=== PATIENT | male | born 1945 | race Caucasian/White ===

== ENCOUNTER → 2024-08-06 07:49 | Outpatient (REF) | payer OTHER, SELFPAY | LOC: RCS 07:49 | PROVIDERS: ATTENDING PHYSICIAN Internal Medicine Cardiovascular Disease; FAMILY PHYSICIAN Internal Medicine | DX: I48.0 Paroxysmal atrial fibrillation (principal); I26.99 Other pulmonary embolism without acute cor pulmonale; I51.9 Heart disease, unspecified; I10 Essential (primary) hypertension | CPT/HCPCS: 93306 ==

== ENCOUNTER → 2025-03-01 09:35 | Outpatient (REF) | payer OTHER, SELFPAY | LOC: RCS 09:35 | PROVIDERS: ATTENDING PHYSICIAN Internal Medicine Cardiovascular Disease | DX: R06.09 Other forms of dyspnea (principal) | CPT/HCPCS: 93017 ==

== ENCOUNTER → 2025-03-26 11:14 | Outpatient (REF) | payer OTHER, SELFPAY | LOC: RCS 11:14 | PROVIDERS: ATTENDING PHYSICIAN Internal Medicine Cardiovascular Disease | DX: R06.09 Other forms of dyspnea (principal); R94.39 Abnormal result of other cardiovascular function study | CPT/HCPCS: 78452; 93017; A9500; J2785 ==

== ENCOUNTER 2025-07-17 10:12 | Emergency (ER) | payer OTHER, SELFPAY ==
[2025-07-17 10:22] VITALS: BP 144/85
[2025-07-17 11:08] VITALS: BP 134/77
[2025-07-17 11:24] LABS: Hematocrit 42.1 % (39.0-52.0); Hemoglobin 14.4 g/dL (13.0-18.0); Mean Corp Hgb Conc. 34.2 g/dL (33.0-37.0); Mean Corpuscular Volume 88.8 fL (80.0-94.0); Nucleated Red Blood Cells % 0 % (-); Platelet Count 190 10^3/uL (130-400); Red Cell Dist. Width 13.6 % (11.5-14.5)
[2025-07-17 11:37] LABS: ALT (SGPT) 26 U/L (0-50); AST (SGOT) 28 U/L (17-59); Albumin 4.0 g/dl (3.5-5.0); Alkaline Phosphatase 71 U/L (38-126); Blood Urea Nitrogen 21 mg/dl (9-20); Calcium 9.1 mg/dl (8.4-10.2); Carbon Dioxide 26 mmol/L (22-30); Chloride 106 mmol/L (98-107); Glucose 89 mg/dl (70-99); Potassium 4.1 mmol/L (3.5-5.1); Sodium 137 mmol/L (135-145); Total Protein 6.4 g/dl (6.3-8.2); eGFR 51.45
[2025-07-17 11:48] LABS: Troponin I < 0.012 ng/ml
--- NOTE | 2025-07-17 12:31 | ED.GENMED ---
History of Present Illness
General
Chief Complaint: Chest Pain
Source: patient
Exam Limitations: none
Time Seen by Provider: 07/17/25 10:54
Nursing documentation reviewed up to this point in time: agreed with
History of Present Illness
History of Present Illness:
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 The chest pain radiates to the upper arm and back, often described as a dull, numb, or burning sensation, sometimes
accompanied by pins and needles in the left arm. The pain does not change with pressing on the area and is not present in the morning but worsens by the end of the day. He rates the pain at 4 out of 10 in severity. The patient reports shortness of
breath predominantly when climbing stairs for the past year. . He had an evaluation earlier today at an urgent care center where an electrocardiogram (EKG) was performed, showing normal results. However, a chest x-ray indicated a shadow in the upper
left lung. The patient was advised by the urgent care to seek further evaluation at this facility. 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
Past History
Past History
ED Past Medical History: Cancer (Prostate cancer 10 years ago with radiation treatment), HTN, Hypercholesterolemia and Other (TIA on Eliquis)
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
Social History
Tobacco: Non-smoker
Alcohol: None
Personal:
Living: with family
Employment: Retired
Review of Systems
Review of Systems
Allergies reviewed?: Yes
All Other Systems: ROS reviewed and negative except as documented in HPI and ROS
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
Phy Exam
Physical Exam
Physical Exam:
GENERAL: No acute distress. A&Ox3.
CONSTITUTIONAL: Afebrile.
EYES: clear, conjunctivae normal
ENMT: moist mucus membranes, Pharynx nl
RESPIRATORY: Regular respirations, nonlabored, lungs clear.
CARDIOVASCULAR: Regular rate and rhythm, no murmurs, no rubs.
GI: Soft, nontender, normal BS, soft tissue protrusion left lower abdomen (chronic)
MUSCULOSKELETAL: Unable to reproduce pain with palpation of the entire left shoulder, chest wall and back areas. Range of motion is full with no aggravation of the pain. He does state when he presses on the axillary area it feels numb as opposed
to the right axillary area. Normal distal pulses, brisk capillary refill. Moves with ease. Well perfused.
SKIN: Warm, dry, pink
PSYCH: Normal mood and affect. Well kept, interactive and appropriate
NEUROLOGIC: Awake, alert and oriented. No focal neurological deficits
Scores
Heart Score for Chest Pain Patients
STEMI patient?: Not applicable
Course
Orders/Labs/Results
Orders:
Orders
07/17/25 10:27
EKG [Electrocardiogram (*1)] Urgent
Reason for Study: Chest Pain
EKG- Treatment ONCE
07/17/25 10:55
CR Chest - 2 Views Urgent
Comment:
Reason For Exam: CP
07/17/25 11:07
Complete Blood Count/With Diff Urgent
Comprehensive Metabolic Panel Urgent
Troponin I Urgent
Abnormal Lab Results
07/17/25
11:07
Absolute Lymphs (auto) 0.8 L 10^3/uL
(1.2-3.4)
Absolute Monos (auto) 0.7 H 10^3/uL
(0.1-0.6)
Lymphocytes % 13.4 L %
(20.5-51.1)
Monocytes % 11.5 H %
(1.7-9.3)
BUN 21 H mg/dl
(9-20)
Creatinine 1.4 H mg/dL
(0.7-1.3)
07/17/25 11:07
07/17/25 11:07
Vital Signs
Initial and Last Documented VS:
Initial Vital Signs
Temp Pulse Resp BP Pulse Ox
98.2 F 64 16 144/85 94
07/17/25 10:22 07/17/25 10:22 07/17/25 10:22 07/17/25 10:22 07/17/25 10:22
Last Documented Vital Signs
Temp Pulse Resp BP Pulse Ox
98.2 F 56 17 134/77 94
07/17/25 10:22 07/17/25 11:30 07/17/25 11:30 07/17/25 11:08 07/17/25 12:33
MDM/Problems Addressed
Differential Diagnosis Includes:
Pneumonia, pleural effusion, musculoskeletal pain
Lung mass
MDM/Problems Addressed:
80 yo male w h/o HTN, HLD, TIA on Eliquis, prostate CA 10 yrs ago w radiation tx, chordoma removed 4presents for chest pain for the last three weeks. The chest pain radiates to the upper arm and back, often described as a dull, numb, or burning
sensation, sometimes accompanied by pins and needles in the left arm. The pain does not change with pressing on the area and is not present in the morning but worsens by the end of the day. He rates the pain at 4 out of 10 in severity. The patient
reports shortness of breath predominantly when climbing stairs for the past year. . He had an evaluation earlier today at an urgent care center and sent here
EKG: Sinus bradycardia with sinus arrhythmia first-degree AV block (pt states he's had this)
CBC, CMP with no clinically significant abnormality consistent with his previous.
chest x-ray indicated a shadow in the upper left lung. This was discussed with pt and .
The patient, a 80-year-old male, was evaluated for chest pain past 3 weeks and shortness of breath largely upon exertion past year. Cardiac workup today reassuring.
Diagnostic workup showing a suspicious shadow in the upper left lung on a chest x-ray. Given the findings, the primary concern is to further investigate the lung mass through additional imagin
Copy of disc and all reports sent with pt for PCP f/u.
*Pulse Oximetry
SaO2: 94
Oxygen Mode of Delivery: Room air
Patient hypoxic: no
*EKG
EKG Intrepretation Date: 07/17/25
Interpretation: abnormal
Comparison EKG: no comparison EKG present
Heart Rate: 53
Rate: bradycardiac
Rhythm: sinus and sinus arrhythmia
[place]: normal axis
Interval: first degree heart block
QRS Pattern: normal QRS
Ischemia: no ischemia
*Critical Care Note
Total Time (30-74mins, 75-104mins- exclusive of procedures): Not Applicable
ED Attending Note
-
Portions of this chart may have been created with voice recognition software.� Occasional wrong word or��sound alike� substitutions may have occurred due to the inherent limitations of voice recognition software.
Discharge Plan
Departure
Patient Disposition: Home (Routine Discharge)
Date of Disposition: 07/17/25
Time of Disposition: 13:21
Patient with high blood pressure during this ER visit?: No
Condition: Good
Discharge Problem:
Atypical chest pain
Instructions: Chest Pain That Is Not Caused by the Heart (DC)
Prescriptions:
No Action
atorvastatin 40 MG tablet
40 mg PO HS
famotidine 20 MG tablet
20 mg PO BID
potassium citrate 10 MEQ tablet extended release
20 meq PO QHS
Patient Comments:
take with meals twice a day
metoprolol succinate 25 MG tablet extended release 24 hr
25 mg PO QHS
tamsulosin 0.4 mg Capsule
0.4 mg PO HS
potassium citrate 10 mEq (1,080 mg) Tablet Extended Release
10 meq PO DAILY
lisinopril 2.5 mg Tablet
2.5 mg PO QHS
ezetimibe 10 mg Tablet
10 mg PO DAILY
Eliquis 5 mg Tablet
5 mg PO BID
Referrals:
[facility] [Other]
Your Primary Doctor [Other] - Call in 1-3 days for appt
UNKNOWN - PT DOES,NOT KNOW [Family Provider]
Activity Restrictions/Additional Instructions:
As we discussed, your blood work today shows nothing worrisome.
There is no indication of heart attack or your symptoms being caused by your heart
Your x-ray does show a left upper chest wall mass.
Call your doctor Saturday morning and make an appoint to have a CAT scan dedicated to the chest.
Interventions
Interventions:
*Risk Screen - Suicide Last Done: 07/17/25 10:26
*General Assessment Last Done: 07/17/25 10:22
*Neglect/Abuse Screening Last Done: 07/17/25 10:26
*ED- Fall Risk Assessment Last Done: 07/17/25 11:04
*ED COVID-19 Vaccine History Last Done: 07/17/25 11:04
*ED Influenza Vaccine History Last Done: 07/17/25 11:13
*Nursing Disposition Last Done: 07/17/25 13:32
ED- Cardiac Assessment Last Done: 07/17/25 11:13
Discharge Date and Time
Discharge Date/Time: 07/17/25 13:32
Print Language: [id number]
== END 2025-07-17 13:32 | disposition home or self-care (01) ==
LOC: EMR 10:12
PROVIDERS: Registered Nurse; EMERGENCY PHYSICIAN Emergency Medicine
DX: R07.89 Other chest pain (principal); I49.8 Other specified cardiac arrhythmias; E78.00 Pure hypercholesterolemia, unspecified; I10 Essential (primary) hypertension; Z86.73 Personal history of transient ischemic attack (TIA), and cerebral infarction without residual deficits; Z85.46 Personal history of malignant neoplasm of prostate; Z79.01 Long term (current) use of anticoagulants; Z90.49 Acquired absence of other specified parts of digestive tract
CPT/HCPCS: 99285; 71046; 80053; 84484; 85025; 93005